=== PATIENT | male | born 1930 | race Caucasian/White ===

== ENCOUNTER 2019-05-10 11:07 | Emergency (ER) | payer OTHER ==
[~2019-05-10] VITALS: Ht 170.2 cm; Wt 59.0 kg
[~2019-05-10 11:07] MED LIST: ACET-2047 PO; ALEN1TAB; ASPI-831 PO; BISA5TAB6 PO; CALC500T32; DOCU-159 PO; FINA5TAB4 PO; GUAI-95 PO; LISI-313 PO; MEMA10TA PO; MIN2 PO; OLAN7.5T5 PO; OMEG300C3; ONDA8TAB14 PO; POLY17PO6 PO; SENN-120 PO; STAR1PAC2 PO; TRAZ-111 PO
--- NOTE | 2019-05-10 11:11 | ERD ---
ER Documentation Chief Complaint Chief Complaint Decreased appetite HPI The patient is a 89-year-old male, presenting to the ER because of decreased appetite and generalized weakness for the last 2 days according to EMS. He is unable to provide any history, the history is obtained from EMS and prison record. He was normally fed, but did not want to eat for the last 2 days. Past medical history: Hypertension, dementia, BPH Past surgical history/social history/review of system: Unable to obtain due to his condition Medications Home Meds Reported Medications Sennosides* (Senna Lax*) 8.6 Mg Tablet, 1 TAB PO QHS, TAB 05/10/19 Acetaminophen* (Acetaminophen*) 650 Mg Tablet, 650 MG PO BID PRN for PAIN, #30 TAB 05/10/19 Finasteride* (Finasteride*) 5 Mg Tablet, 5 MG PO DAILY, TAB 05/10/19 Docusate Sodium* (Docusate Sodium*) 100 Mg Capsule, 100 MG PO DAILY, #30 CAP 05/10/19 Trazodone Hcl* (Trazodone Hcl*) 50 Mg Tablet, 25 MG PO QHS, #30 TAB 05/10/19 Olanzapine* (Olanzapine*) 7.5 Mg Tablet, 2.5 MG PO QPM, #30 TAB 05/10/19 Polyethylene Glycol* (Miralax*) 17 Gm Powd.pack, 17 GM PO DAILY, #30 PACKET 05/10/19 Guaifenesin/Dextromethorphan (Diabetic Tussin DM*) 118 Ml Liquid, 2 TSP PO Q6 PRN for COUGH, BOTTLE 05/10/19 Ondansetron (Ondansetron Odt) 8 Mg Tab.rapdis, 8 MG PO Q8 PRN for NAUSEA AND/OR VOMITING, TAB 05/10/19 Bisacodyl* (Bisacodyl*) 5 Mg Tablet.dr, 5 MG PO DAILY PRN for CONSTIPATION, TAB 05/10/19 Starch (Thick-It) 1 Each Powd.pack, 1 EACH PO WITH MEALS 05/10/19 Discontinued Reported Medications Alendronate Sodium-Vitamin D3 (Fosamax Plus-D) 1 Tab Tablet 05/26/13 [place]-3 Fatty Acids (Fish Oil) 300 Mg Capsule 05/26/13 Calcium (Calcio Marco) 500 Mg Tablet 05/26/13 Prazosin Hcl* (Minipres*) 2 Mg Cap, 2 MG PO DAILY 05/26/13 Finasteride* (Finasteride*) 5 Mg Tablet, 5 MG PO DAILY 05/26/13 Aspirin (Aspirin) 81 Mg Chew, 81 MG PO DAILY 05/26/13 Memantine* (Namenda*) 10 Mg Tablet, 10 MG PO BID 05/26/13 Lisinopril* (Lisinopril*) 5 Mg Tablet, 5 MG PO DAILY 05/26/13 Allergies Allergies: Coded Allergies: Penicillins (Unverified Allergy, Unknown, 05/10/19) clonidine (Unverified Allergy, Unknown, 05/10/19) donepezil (Unverified Allergy, Unknown, 05/10/19) terazosin (Unverified Allergy, Unknown, 05/10/19) PMhx/Soc History of Surgery: No Anesthesia Reaction: No Hx Neurological Disorder: No Hx Respiratory Disorders: No Hx Cardiac Disorders: Yes (HTN) Hx Psychiatric Problems: No Hx Miscellaneous Medical Probl: No Hx Alcohol Use: No Hx Substance Use: No Hx Tobacco Use: No Physical Exam Vitals Vital Signs Date Temp Pulse Resp B/P (MAP) Pulse Ox O2 O2 Flow FiO2 Time Delivery Rate 05/10/19 98.2 63 16 139/60 99 Room Air 13:19 (86) 05/10/19 98.7 66 18 124/62 96 11:27 (82) Physical Exam Const: No acute distress. Dehydrated Head: Atraumatic. Eyes: Normal Conjunctiva. ENT: Normal External Ears, Nose and Mouth. Neck: Full range of motion. No meningismus. Resp: Clear to auscultation bilaterally. Cardio: Regular rate and rhythm. Abd: Soft, non distended, normal bowel sounds, non tender. Skin: No petechiae or rashes. Back: No midline or flank tenderness. Ext: No cyanosis, or edema. Contracted Neur: Unable to perform due to his condition Psych: Unable to perform due to his condition Result Diagram: 05/10/19 1140 05/10/19 1140 Results 24 hrs Laboratory Tests Test 05/10/19 11:40 05/10/19 11:56 White Blood Count 13.8 10^3/ul Red Blood Count 4.18 10^6/ul Hemoglobin 12.3 g/dl Hematocrit 38.2 % Mean Corpuscular Volume 91.4 fl Mean Corpuscular Hemoglobin 29.4 pg Mean Corpuscular Hemoglobin Concent 32.2 g/dl Red Cell Distribution Width 13.7 % Platelet Count 314 10^3/UL Mean Platelet Volume 9.8 fl Immature Granulocytes % 0.400 % Neutrophils % 75.7 % Lymphocytes % 14.5 % Monocytes % 9.1 % Eosinophils % 0.1 % Basophils % 0.2 % Nucleated Red Blood Cells % 0.0 /100WBC Immature Granulocytes # 0.060 10^3/ul Neutrophils # 10.4 10^3/ul Lymphocytes # 2.0 10^3/ul Monocytes # 1.3 10^3/ul Eosinophils # 0.0 10^3/ul Basophils # 0.0 10^3/ul Nucleated Red Blood Cells # 0.0 10^3/ul Urine Color YELLOW Urine Clarity CLOUDY Urine pH 5.0 Urine Specific [place] 1.014 Urine Ketones NEGATIVE mg/dL Urine Nitrite NEGATIVE mg/dL Urine Bilirubin NEGATIVE mg/dL Urine Urobilinogen NEGATIVE mg/dL Urine Leukocyte Esterase 3+ Nicci/ul Urine Microscopic RBC 37 /HPF Urine Microscopic WBC > 182 /HPF Urine Bacteria FEW /HPF Urine Mucus FEW /HPF Urine Hemoglobin 2+ mg/dL Urine Glucose NEGATIVE mg/dL Urine Total Protein NEGATIVE mg/dl Sodium Level 145 mmol/L Potassium Level 4.5 mmol/L Chloride Level 106 mmol/L Carbon Dioxide Level 32 mmol/L Anion Gap 7 Blood Urea Nitrogen 20 mg/dl Creatinine 1.09 mg/dl Est Glomerular Filtrat Rate mL/min mL/min Glucose Level 118 mg/dl Calcium Level 9.8 mg/dl Total Bilirubin 0.7 mg/dl Direct Bilirubin 0.00 mg/dl Indirect Bilirubin 0.7 mg/dl Aspartate Amino Transf (AST/SGOT) 39 IU/L Alanine Aminotransferase (ALT/SGPT) 35 IU/L Alkaline Phosphatase 73 IU/L Total Protein 7.3 g/dl Albumin 3.4 g/dl Globulin 3.90 g/dl Albumin/Globulin Ratio 0.87 Lipase 23 U/L Bedside Urine pH (LAB) 5.5 Bedside Urine Protein (LAB) 1+ Bedside Urine Glucose (UA) Negative Bedside Urine Ketones (LAB) Negative Bedside Urine Blood 2+ Bedside Urine Nitrite (LAB) Negative Bedside Urine Leukocyte Esterase (L 2+ Current Medications Medications Dose Sig/Janet Start Time Status Last (Trade) Ordered Route PRN Stop Time Admin Dose Reason Admin Piperacillin 100 ml @ ONCE ONCE 05/10/19 Cancel Sod/ 200 mls/hr IVPB 12:30 05/10/19 Tazobactam 12:59 Sod Sodium 500 ml @ Q1H ONCE 05/10/19 DC 05/10/19 Chloride 500 mls/hr IV 12:30 05/10/19 13:09 13:29 50 ml @ Q12 IVPB 05/10/19 Cancel Meropenem/Sod 100 mls/hr 13:00 ium Chloride 50 ml @ ONCE ONCE 05/10/19 05/10/19 Meropenem/Sod 100 mls/hr IVPB 13:30 05/10/19 13:09 ium Chloride 13:59 Procedures/MDM [place] [id number] Radiology Main Line: [phone] DIAGNOSTIC IMAGING REPORT Patient: RADHA BROTHERS : 1930 Age: 89 Sex: M MR #: [id number] DOS: 05/10/19 1130 Ordering MD: MAGALIS GOTTI MD Location: E/R Room/Bed: PROCEDURE: XR Chest. CLINICAL INDICATION: Abdominal pain. TECHNIQUE: Chest, 1 view. COMPARISON: 05/26/2013 FINDINGS: The cardiomediastinal silhouette demonstrates enlargement of the cardiac silhouette. There are aortic calcifications. Shallow lung volumes with mild bibasilar opacities No pleural effusion is seen. No definite pneumothorax is seen. No acute osseous abnormality. IMPRESSION: Shallow lung volumes with mild bibasilar opacities, likely atelectasis however correlation for pneumonia would be helpful. Mild cardiomegaly. Aortic atherosclerosis. RPTAT: AAEE Physician Ameya Date Time Electronically viewed and signed by Sam Cheng Physician on 05/10/2019 12:12 PH/ CC: MAGALIS GOTTI MD [phone] EKG: Read by emergency physician Rate/Rhythm: Normal Sinus Rhythm 69 beats/min QRS, ST, T-waves: No ST elevation, no T inversion, artifacts, LVH, lateral T abnormality Impression: Abnormal EKG MEDICAL MAKING DECISION: The patient is presenting with acute failure to thrive, acute cystitis, acute dehydration He was treated with meropenem IV for acute cystitis, normosaline 500 mL IV for acute dehydration with good response The differential diagnoses considered include but are not limited to UTI, pyelonephritis, pneumonia, worsening dementia, delirium Departure Diagnosis: Primary Impression: UTI (urinary tract infection) Additional Impressions: Dehydration Failure to thrive Anemia Condition: Stable Comments I discussed the findings with the patient. I notified the patient with Dr. Hackett at 1:30p via [facility], who was made aware of the lab, the treatment, the patient condition. The patient is transferred to [facility] via ambulance Disclaimer: Inadvertent spelling and grammatical errors are likely due to EHR/dictation software use and do not reflect on the overall quality of patient care. Also, please note that the electronic time recorded on this note does not necessarily reflect the actual time of the patient encounter. MAGALIS GOTTI MD May 10, 2019 11:11
[2019-05-10 11:27] VITALS: Ht 170.2 cm; Wt 59.0 kg
[2019-05-10] MEDS ORDERED: SOD CHLORIDE 0.9% 500 ML IV ONE (12:30)
[2019-05-10] MEDS ORDERED: PIPER-TAZO 3.375 GM IV (PMX) 100 ML IVPB ONE (12:30)
[2019-05-10] MEDS ORDERED: MEROPENEM 500MG/50 ML (PMX) 50 ML IVPB SCH (13:00)
[2019-05-10] MEDS ORDERED: MEROPENEM 500MG/50 ML (PMX) 50 ML IVPB ONE (13:30)
[2019-05-10 15:47] VITALS: BP 118/62; PULSE 51; RESP 17
== END 2019-05-10 15:54 | disposition short-term general hospital (02) ==
LOC: E/R 11:07
DX: N39.0 Urinary tract infection, site not specified (principal); E86.0 Dehydration; D64.9 Anemia, unspecified; I10 Essential (primary) hypertension; R40.2142 Coma scale, eyes open, spontaneous, at arrival to emergency department; R40.2362 Coma scale, best motor response, obeys commands, at arrival to emergency department; R40.2242 Coma scale, best verbal response, confused conversation, at arrival to emergency department; R62.7 Adult failure to thrive
CPT/HCPCS: 36415; 71045; 80053; 81001; 83605; 83690; 85025; 87086; 93005; 96374; 99285; J2185; J7040; 81003